=== PATIENT | female | born 1965 | race Caucasian/White ===

== ENCOUNTER 2021-01-24 12:23 | Emergency (ER) | payer OTHER ==
[2021-01-24 13:27] LABS: BASOPHIL 0.5 % (0-2); EOSINOPHIL 0.9 % (0-5); HCT 42.1 % (37.0-47.0); HGB 14.2 g/dl (12.5-16.0); LYMPHOCYTE 24.7 % (15-48); MCH 28.5 pg (25.0-31.0); MCHC 33.7 g/dL (32.0-36.0); MCV 84.4 fL (78.0-100.0); MPV 10.1 fL (6.0-9.5); NEUTROPHIL 67.2 % (41-80); NRBC 0; PLT 177 K/uL (150-400); RBC 4.99 M/uL (4.20-5.40); RDW 12.3 % (11.5-14.0); WBC 8.8 K/uL (4.0-10.5)
[2021-01-24 13:42] LABS: ALBUMIN 3.9 g/dL (3.4-5.0); BILIRUBIN - TOTAL 0.6 mg/dL (0.2-1.0); BUN/CREAT RATIO (CALC) 15.6 RATIO; CREATININE 0.64 mg/dL (0.51-0.95); GLOBULIN (CALCULATION) 4.4 g/dL; POTASSIUM 4.4 mmol/L (3.5-5.1); TOTAL PROTEIN 8.3 g/dL (6.4-8.2)
[2021-01-24 14:01] LABS: BILIRUBIN NEGATIVE (NEGATIVE); BLOOD TRACE-INTACT Ery/uL (NEGATIVE); COLOR YELLOW (YELLOW); GLUCOSE (U) 3+ mg/dL (NORMAL); LEUKOCYTES TRACE Leu/uL (NEGATIVE); NITRITE POSITIVE (NEGATIVE); PROTEIN 1+ mg/dL (NEGATIVE); UROBILINOGEN 0.2 mg/dL (0.2-1.0); pH 5.5 (5.0-9.0)
[2021-01-24 14:15] LABS: CLARITY HAZY (CLEAR)
[2021-01-24 14:28] LABS: BACTERIA 1+; URINARY RBC RARE
== END 2021-01-24 17:15 | disposition other institution (70) ==
LOC: FER 12:23
PROVIDERS: Emergency Medicine
DX: N13.2 Hydronephrosis with renal and ureteral calculous obstruction (principal); E11.9 Type 2 diabetes mellitus without complications; I10 Essential (primary) hypertension; Z87.442 Personal history of urinary calculi; Z79.84 Long term (current) use of oral hypoglycemic drugs; Z79.899 Other long term (current) drug therapy
CPT/HCPCS: 36415; 80053; 81001; 82150; 83690; 85025; J0696; J1885; J2270; J2405; J7030